=== PATIENT | female | born 1980 | race Hispanic/Latino ===

== ENCOUNTER 2020-04-01 13:26 | Emergency (ER) | payer SELFPAY ==
[~2020-04-01] VITALS: Ht 165.1 cm; Wt 79.4 kg
--- OUTSIDE RECORDS SUMMARY | 2020-04-01 13:28 | XMS REPORT | Continuity of Care Document ---
Author Author [facility] t Organization [facility] Address [address] [place] [address] Phone Unavailable Care Team Providers Care Radio Time Sales Supervisor Name Role Phone Meeta Richter MD PCP KEVIN POLK Attphys Unavailable KEVIN POLK Admphys Unavailable Problems Condition Name Condition Details Condition Category Status Onset Date Resolution Date Last Treatment Date Treating Clinician Comments Source Dysmenorrhea Dysmenorrhea Disease Active 2017-08-27 00:00:00 [facility] Foreign body in uterus, any part Foreign body in uterus, any par t Disease Active 2017-08-27 00:00:00 [facility] Menorrhagia Menorrhagia Disease Active 2017-08-27 00:00:00 [facility] Pelvic pain in female Pelvic pain in female Disease Active 201 05-04-03 00:00:00 [facility] Allergies, Adverse Reactions, Alerts This patient has no known allergies or adverse reactions. Family History Family Member Diagnosis Comments Start Date Stop Date Source Maternal grandfather Diabetes [facility] Maternal grandfather Heart disease [facility] Maternal grandfather High blood pressure [facility] Maternal grandmother Heart disease [facility] Maternal grandmother High blood pressure [facility] Natural mother Heart disease [facility] Natural mother High blood pressure [facility] Social History Social Habit Start Date Stop Date Quantity Comments Source Sex Assigned At [facility] Alcohol Comment 2017-07-19 00:00:00 2017-07-19 00:00:00 per week [facility] Smoking Status Start Date Stop Date Source Never smoker [facility] Medications This patient has no known medications. Procedures This patient has no known procedures. Plan of Care Planned Activity Planned Date Details Comments Source Future Scheduled Test 2019-06-25 00:00:00 INFLUENZA VACCINE (#1) [code = INFLUENZA VACCINE (#1)] [facility] r Future Scheduled Test 2000 00:00:00 Screening for jeanmarie gnant neoplasm of cervix (procedure) [code = 799871336] [facility] Results Test Description Test Time Test Comments Results Result Comments Source FUNGUS CULTURE + SMEAR 2017-09-15 14:17:00 Test Item CULTURE (BEAKER) (test code = 1095) 5-Flurocytosine (test code = 237) Suscep tible 0-4 , Intermediate <0 or >4 , Resistant >16 S Amphotericin B (test code = 136) Suscept ible >0-0 , No Interpretations Established <=0 or >0 Caspofungin acetate (test code = 141) Susceptible 0-0. 25 , Non S Fluconazole (test code = 143) Susceptibl e 0-2 , Dose Dependent Susceptible <0 or >2 , Resi S Itraconazole (test code = 146) Susceptib le 0-0.125 , Dose Dependent Susceptible <0 or >.125 S Micafungin (test code = 148) Susceptible 0-0.25 , Non S Posaconazole (test code = 152) Susceptib le >0-0 , No Interpretations Established <=0 or >0 Voriconazole (test code = 153) Susceptib le 0-0.12 , Dose Dependent Susceptible <0 or >.12 , S CULTURE (BEAKER) (test code = 1095) A <1+ Jocelyne albicans FUNGUS SMEAR (BEAKER) (test code = 1406) No fungi seen MISCELLANEOUS LAB [id number] 13:16:00* Test Item Value Reference Range Interpretation Comments SCAN RESULT (test code = 2913496) MISCELLANEOUS LAB [id number] 07:57:00* Test Item Value Reference Range Interpretation Comments SCAN RESULT (test code = 7334098) See scanned result ANAEROBIC [id number] 14:56:00* Test Item Value Reference Range Interpretation Comments CULTURE (BEAKER) (test code = 1095) A <1+ Prevotella loescheii SURGICALLY OBTAINED CULTURE + GRAM [id number] 12:31:00* Test Item Value Reference Range Interpretation Comments CULTURE (BEAKER) (test code = 1095) A 1+ Gardnerella vaginalis GRAM STAIN RESULT (BEAKER) (test code = 1123) No WBCs GRAM STAIN RESULT (BEAKER) (test code = 156152) No organisms seen TISSUE [id number] 10:52:00Surgical Pathology Report Case: [id number] Authorizing Provider: Yue Polk MD Collected: 08/27/2017 0844 Ordering Location: [facility] PERI[facility] Received: 08/27/2017 1237 SERVICES Pathologist: Cristina Rueda MD Specimens: A) - Foreign Body, FOREIGN BODY -UTERUS, HYSTEROSCOPICALLY REMOVED-IDENTIFICATION PURPOSE B) - Endometrium, ENDOMETRIAL BIOPSY C) - Fallopian Tube, Right, RIGHT TUBE WITH FOREIGN BODY AND CYST D) - Fallopian Tube, Left, LEFT TUBE WITH FOREIGN BODY A. UTERUS, FOREIGN BODY, HYSTEROSCOPICALLY REMOVED: - METAL WIRE (GROSS IDENTIFICATION ONLY)B. ENDOMETRIUM, BIOPSY: - WEAKLY PROLIFERATIVE ENDOMETRIUM WITH TUBAL METAPLASIAC. FALLOPIAN TUBE, RIGHT, SALPINGECTOMY: - PARATUBAL CYST - METAL WIRE (GROSS IDENTIFICATION)C. FALLOPIAN TUBE, LEFT, SALPINGECTOMY: - NO SIGNIFICANT PATHOLOGIC ALTERATION - METAL WIRE (GROSS IDENTIFICATION) MG/[id number], 52399, 40686 [id number], pelvic pain, menorrhagia, foreign body uterusA. Foreign body uterus. B. Endometrial biopsy. C. Right tube with foreign body and cyst. D. Left tube with foreign body Specim en A: The specimen is received in fixative and designated as "foreign body", con sists of a metal wire 25.5 cm in length and 0.1 cm in diameter. No histologic se ctions are submitted, as it's for gross identification only.Specimen B: The spec imen is received in fixative and designated as "endometrium", consists of two pi nk-roberts tissue fragments ranging in size from 0.5 to 0.7 cm in greatest dimension . Both tissue fragments are submitted into B1.Specimen C: The specimen is receiv ed in fixative and designated as "fallopian tube right", consists of a fallopian tube (11.0 cm in length and diameter ranging in size from 0.8 to 3.5 cm in grea test dimension). The distal end of the fallopian tube is dilated and cystic. The proximal aspect of the fallopian tube has a coiled wire protruding through the end (5.0 cm in length and 0.2 cm in diameter). Sectioning through the more dilat ed aspect of the fallopian tube reveals a hemorrhagic lumen.Section code: C1, re presentative cross sections of proximal aspect of fallopian tube; C2-C3, cystica lly dilated aspect of fallopian tube.Specimen D: The specimen is received in fix ative and designated as "fallopian tube left", consists of a pink-roberts fallopian tube with fimbriated end (5 cm in length and 0.9 cm in diameter). The proximal a spect of the fallopian tube has a coiled metal wire (3 cm in length and 0.2 cm i n diameter). Additionally paratubal adipose tissue (1.0 x 1.0 x 1.0 cm) is ident ified.Section code: D1, tour sales representative sections of fallopian tube lumen with adj acent fat; D2, fimbriated end entirely submitted. MG/ew A: Not applicable B-D: P erformed [facility], Department of Pathology, [address] [place] [address], [facility], Department of Pathology, [address] [place] [id number], Tel [facility], Department of Pathology, [address] [place] [address], WPF, SERUM, QUALITATIVE 2017-08-20 13:28:00* Test Item Value Reference Range Interpretation Comments TEST SERUM (BEAKER) (test code = 584) Negative CBC W/PLT COUNT & AUTO [id number] 12:55:00* Test Item Value Reference Range Interpretation Comments WHITE BLOOD CELL COUNT (BEAKER) (test code = 775) 8.4 K/ L 4.0- 10.0 RED BLOOD CELL COUNT (BEAKER) (test code = 761) 4.28 M/ L 4.00-5 .00 HEMOGLOBIN (BEAKER) (test code = 410) 11.7 GM/DL 12.0-15.0 L HEMATOCRIT (BEAKER) (test code = 411) 35.8 % 36.0-45.0 L MEAN CORPUSCULAR VOLUME (BEAKER) (test code = 753) 83.6 fL 82. 0-99.0 MEAN CORPUSCULAR HEMOGLOBIN (BEAKER) (test code = 751) 27.4 pg 27.0-33.0 MEAN CORPUSCULAR HEMOGLOBIN CONC (BEAKER) (test code = 752) 32.7 GM/DL 32.0-36.0 RED CELL DISTRIBUTION WIDTH (BEAKER) (test code = 412) 15.4 % 10.3-14.2 H PLATELET COUNT (BEAKER) (test code = 756) 384 K/CU MM 150-430 MEAN PLATELET VOLUME (BEAKER) (test code = 754) 7.7 fL 6.5-10 .5 NUCLEATED RED BLOOD CELLS (BEAKER) (test code = 413) 0 /100 WBC 0 -0 NEUTROPHILS RELATIVE PERCENT (BEAKER) (test code = 429) 55 % LYMPHOCYTES RELATIVE PERCENT (BEAKER) (test code = 430) 39 % MONOCYTES RELATIVE PERCENT (BEAKER) (test code = 431) 5 % EOSINOPHILS RELATIVE PERCENT (BEAKER) (test code = 432) 1 % BASOPHILS RELATIVE PERCENT (BEAKER) (test code = 437) 0 % NEUTROPHILS ABSOLUTE COUNT (BEAKER) (test code = 670) 4.60 K/ L 1.80-8.00 LYMPHOCYTES ABSOLUTE COUNT (BEAKER) (test code = 414) 3.30 K/ L 1.48-4.50 MONOCYTES ABSOLUTE COUNT (BEAKER) (test code = 415) 0.40 K/ L 0. 00-1.30 EOSINOPHILS ABSOLUTE COUNT (BEAKER) (test code = 416) 0.10 K/ L 0.00-0.50 BASOPHILS ABSOLUTE COUNT (BEAKER) (test code = 417) 0.00 K/ L 0. 00-0.20
--- OUTSIDE RECORDS SUMMARY | 2020-04-01 13:28 | XMS REPORT | Clinical Summary ---
Author Author [facility] Organization [facility] Address Unknown Phone Unavailable Care Team Providers Care Digital Content Specialist Name Role Phone Jessica Richter MD PCP Allergies No Known Allergies Medications No known medications Active Problems Problem Noted Date Dysmenorrhea 08/27/2017 Foreign body in uterus, any part 08/27/2017 Menorrhagia 08/27/2017 Pelvic pain in female 08/27/2017 Family History Medical History Relation Name Comments Diabetes Maternal Grandfather Heart disease Maternal Grandfather High blood pressure Maternal Grandfather Heart disease Maternal Grandmother High blood pressure Maternal Grandmother Heart disease Mother High blood pressure Mother Relation Name Status Comments Maternal Grandfather Maternal Grandmother Mother Social History Date Tobacco Use Types Packs/Day Years Used Never Smoker Smokeless Tobacco: Never Used Alcohol Use Drinks/Week oz/Week Comments Yes 3 Glasses of 3.6 per week wine 3 Cans of beer Sex Assigned at Date Recorded Not on file Industry Job Start Date Occupation Not on file Not on file Not on file Travel End Travel History Travel Start No recent travel history available. Last Filed Vital Signs Not on file Plan of Treatment Health Maintenance Due Date Last Done Comments CERVICAL CANCER SCREENING 2000 PAP ONLY (Age 21-65) INFLUENZA VACCINE (#1) 2019 Results Not on fileafter 04/01/2019 Advance Directives For more information, please contact: [facility] [address] [place], [place] [id number] Date Inactivated Comments Code Status Date Activated 08/27/2017 2:31 PM Full Code 08/27/2017 5:55 AM This code status was determined by: Patient
[2020-04-01] MEDS ORDERED: KETOROLAC TROMETHAMINE 30 MG/ML VIAL IV STA (13:32)
[2020-04-01] MEDS ORDERED: CEFTRIAXONE SOD 1 GM/NS 50 ML 50 ML IV STA (13:32)
[2020-04-01] MEDS ORDERED: SODIUM CHLORIDE 0.9% 1000ML 1,000 ML IV STA ×2 (13:32→16:14)
[2020-04-01] MEDS ORDERED: ONDANSETRON HCL INJ 2MG/ML 2ML 2 MG/ML VIAL IV STA (13:32)
[2020-04-01] MEDS ORDERED: MORPHINE SULFATE INJ 4 MG/ML INJ 1ML IV STA (13:32)
--- NOTE | 2020-04-01 13:37 | Emergency Department Note ---
History of Present Illnes History of Present Illness History of Present Illness This is a 39 year old female . c/o r flank pain on set 1030 am c/o n/v Arrival Mode: Car Onset (how long ago): day(s) (c/o r flank pain on set 1030 am c/o n/v ) Radiation: flank Severity: severe Onset quality: sudden Duration (how long): day(s) (c/o r flank pain on set 1030 am c/o n/v ) Timing of current episode: constant Progression: waxing and waning Context: recent illness, recent surgery, recent immobilization, recent travel, trauma/injury, new medications, hx of DVT/PE, non-compliance w/ medications, other Relieving factors: none Exacerbating factors: none Treatments prior to arrival: none Past Medical/Family History Physician Review I have reviewed the patient's past medical and family history. Any updates have been documented here. Past Medical History Recent Fever: No Clinical Suspicion of Infectio: No New/Unexplained Change in Ment: No Past Medical History: Hypertension Past Surgical History: Hysterectomy Social History Smoking Cessation: Never Smoker Alcohol Use: None Any Illegal Drug Use: No TB Exposure/Symptoms: No Physically hurt or threatened: No Family History Family history of heart diseas: No Other Any Pre-Existing Lines (PICC,: No Review of Systems Review of Systems Constitutional: no symptoms EENTM: no symptoms Cardiovascular: no symptoms Respiratory: no symptoms Gastrointestinal: nausea, vomiting, other (r flank pain ) Genitourinary: no symptoms Musculoskeletal: no symptoms Neurological: no symptoms Psychological: no symptoms Endocrine: no symptoms Hematological/Lymphatic: no symptoms Review of other systems All other systems reviewed and negative. Physical Exam Related Data Allergies: Coded Allergies: No Known Allergies (Unverified , 04/01/20) Vital signs reviewed: Yes Physical Exam CONSTITUTIONAL Constitutional: well-developed, well-nourished HENT HENT: normocephalic, atraumatic, oropharynx clear/moist, nose normal HENT L/R: left ext ear normal, right ext ear normal EYES Eyes: PERRL, conjunctivae normal NECK Neck: ROM normal PULMONARY Pulmonary: effort normal, breath sounds normal CARDIOVASCULAR Cardiovascular: regular rhythm, heart sounds normal, capillary refill normal, normal rate GASTROINTESTINAL Abdominal: soft, nontender, bowel sounds normal, other (c/o r flank pain on set 1030 am c/o n/v ) GENITOURINARY Genitourinary: exam deferred SKIN Skin: warm, dry MUSCULOSKELETAL Musculoskeletal: ROM normal NEUROLOGICAL Neurological: alert, oriented x 3, no gross motor or sensory deficits PSYCHOLOGICAL Psychological: mood/affect normal, judgement normal Results Laboratory Laboratory Laboratory Tests Test 04/01/20 13:52 04/01/20 13:30 Urine Color Yellow (YELLOW) Urine Clarity Turbid (CLEAR) Urine pH 6 (5 - 7) Urine Specific [place] 1.030 (1.010-1.025) Urine Protein 1+ (NEGATIVE) Urine Glucose (UA) Negative (NEGATIVE) Urine Ketones Negative (NEGATIVE) Urine Blood Large (NEGATIVE) Urine Nitrite Negative (NEGATIVE) Urine Bilirubin Negative (NEGATIVE) Urine Urobilinogen 0.2 mg/dL (0.2 - 1) Urine Leukocyte Esterase Negative (NEGATIVE) Urine RBC >50 /HPF (0-5) Urine WBC 6-10 /HPF (0-5) Urine Epithelial Cells Rare /LPF (NONE) Urine Amorphous Sediment Many (FEW) Urine Bacteria Few /HPF (NONE) White Blood Count 10.39 x10e3/uL (4.8-10.8) Red Blood Count 4.42 x10e6/uL (3.6-5.1) Hemoglobin 13.1 g/dL (12.0-16.0) Hematocrit 39.1 % (34.2-44.1) Mean Corpuscular Volume 88.5 fL (81-99) Mean Corpuscular Hemoglobin 29.6 pg (28-32) Mean Corpuscular Hemoglobin Concent 33.5 g/dL (31-35) Red Cell Distribution Width 12.5 % (11.7-14.4) Platelet Count 397 x10e3/uL (140-360) Neutrophils (%) (Auto) 64.4 % (38.7-80.0) Lymphocytes (%) (Auto) 30.3 % (18.0-39.1) Monocytes (%) (Auto) 3.9 % (4.4-11.3) Eosinophils (%) (Auto) 0.4 % (0.0-6.0) Basophils (%) (Auto) 0.5 % (0.0-1.0) Neutrophils # (Auto) 6.7 (2.1-6.9) Lymphocytes # (Auto) 3.2 (1.0-3.2) Monocytes # (Auto) 0.4 (0.2-0.8) Eosinophils # (Auto) 0.0 (0.0-0.4) Basophils # (Auto) 0.1 (0.0-0.1) Absolute Immature Granulocyte (auto 0.05 x10e3/uL (0-0.1) Sodium Level 138 mmol/L (136-145) Potassium Level 3.8 mmol/L (3.5-5.1) Chloride Level 106 mmol/L (98-107) Carbon Dioxide Level 18 mmol/L (22-29) Anion Gap 17.8 mmol/L (8-16) Blood Urea Nitrogen 14 mg/dL (7-26) Creatinine 0.78 mg/dL (0.57-1.11) Estimat Glomerular Filtration Rate > 60 ML/MIN (60-) BUN/Creatinine Ratio 18 (6-25) Glucose Level 115 mg/dL (74-118) Calcium Level 9.5 mg/dL (8.4-10.2) Total Bilirubin 0.3 mg/dL (0.2-1.2) Aspartate Amino Transf (AST/SGOT) 16 IU/L (5-34) Alanine Aminotransferase (ALT/SGPT) 20 IU/L (0-55) Alkaline Phosphatase 84 IU/L (40-150) Total Protein 8.5 g/dL (6.5-8.1) Albumin 4.0 g/dL (3.5-5.0) Globulin 4.5 g/dL (2.3-3.5) Albumin/Globulin Ratio 0.9 (0.8-2.0) Amylase Level 51 U/L (25-125) Lipase 16 U/L (8-78) Laboratory Tests Test 04/01/20 13:52 04/01/20 13:30 Urine Color Yellow (YELLOW) Urine Clarity Turbid (CLEAR) Urine pH 6 (5 - 7) Urine Specific [place] 1.030 (1.010-1.025) Urine Protein 1+ (NEGATIVE) Urine Glucose (UA) Negative (NEGATIVE) Urine Ketones Negative (NEGATIVE) Urine Blood Large (NEGATIVE) Urine Nitrite Negative (NEGATIVE) Urine Bilirubin Negative (NEGATIVE) Urine Urobilinogen 0.2 mg/dL (0.2 - 1) Urine Leukocyte Esterase Negative (NEGATIVE) Urine RBC >50 /HPF (0-5) Urine WBC 6-10 /HPF (0-5) Urine Epithelial Cells Rare /LPF (NONE) Urine Amorphous Sediment Many (FEW) Urine Bacteria Few /HPF (NONE) White Blood Count 10.39 x10e3/uL (4.8-10.8) Red Blood Count 4.42 x10e6/uL (3.6-5.1) Hemoglobin 13.1 g/dL (12.0-16.0) Hematocrit 39.1 % (34.2-44.1) Mean Corpuscular Volume 88.5 fL (81-99) Mean Corpuscular Hemoglobin 29.6 pg (28-32) Mean Corpuscular Hemoglobin Concent 33.5 g/dL (31-35) Red Cell Distribution Width 12.5 % (11.7-14.4) Platelet Count 397 x10e3/uL (140-360) Neutrophils (%) (Auto) 64.4 % (38.7-80.0) Lymphocytes (%) (Auto) 30.3 % (18.0-39.1) Monocytes (%) (Auto) 3.9 % (4.4-11.3) Eosinophils (%) (Auto) 0.4 % (0.0-6.0) Basophils (%) (Auto) 0.5 % (0.0-1.0) Neutrophils # (Auto) 6.7 (2.1-6.9) Lymphocytes # (Auto) 3.2 (1.0-3.2) Monocytes # (Auto) 0.4 (0.2-0.8) Eosinophils # (Auto) 0.0 (0.0-0.4) Basophils # (Auto) 0.1 (0.0-0.1) Absolute Immature Granulocyte (auto 0.05 x10e3/uL (0-0.1) Sodium Level 138 mmol/L (136-145) Potassium Level 3.8 mmol/L (3.5-5.1) Chloride Level 106 mmol/L (98-107) Carbon Dioxide Level 18 mmol/L (22-29) Anion Gap 17.8 mmol/L (8-16) Blood Urea Nitrogen 14 mg/dL (7-26) Creatinine 0.78 mg/dL (0.57-1.11) Estimat Glomerular Filtration Rate > 60 ML/MIN (60-) BUN/Creatinine Ratio 18 (6-25) Glucose Level 115 mg/dL (74-118) Calcium Level 9.5 mg/dL (8.4-10.2) Total Bilirubin 0.3 mg/dL (0.2-1.2) Aspartate Amino Transf (AST/SGOT) 16 IU/L (5-34) Alanine Aminotransferase (ALT/SGPT) 20 IU/L (0-55) Alkaline Phosphatase 84 IU/L (40-150) Total Protein 8.5 g/dL (6.5-8.1) Albumin 4.0 g/dL (3.5-5.0) Globulin 4.5 g/dL (2.3-3.5) Albumin/Globulin Ratio 0.9 (0.8-2.0) Amylase Level 51 U/L (25-125) Lipase 16 U/L (8-78) Laboratory Tests Test 04/01/20 13:52 04/01/20 13:30 Urine Color Yellow (YELLOW) Urine Clarity Turbid (CLEAR) Urine pH 6 (5 - 7) Urine Specific [place] 1.030 (1.010-1.025) Urine Protein 1+ (NEGATIVE) Urine Glucose (UA) Negative (NEGATIVE) Urine Ketones Negative (NEGATIVE) Urine Blood Large (NEGATIVE) Urine Nitrite Negative (NEGATIVE) Urine Bilirubin Negative (NEGATIVE) Urine Urobilinogen 0.2 mg/dL (0.2 - 1) Urine Leukocyte Esterase Negative (NEGATIVE) Urine RBC >50 /HPF (0-5) Urine WBC 6-10 /HPF (0-5) Urine Epithelial Cells Rare /LPF (NONE) Urine Amorphous Sediment Many (FEW) Urine Bacteria Few /HPF (NONE) White Blood Count 10.39 x10e3/uL (4.8-10.8) Red Blood Count 4.42 x10e6/uL (3.6-5.1) Hemoglobin 13.1 g/dL (12.0-16.0) Hematocrit 39.1 % (34.2-44.1) Mean Corpuscular Volume 88.5 fL (81-99) Mean Corpuscular Hemoglobin 29.6 pg (28-32) Mean Corpuscular Hemoglobin Concent 33.5 g/dL (31-35) Red Cell Distribution Width 12.5 % (11.7-14.4) Platelet Count 397 x10e3/uL (140-360) Neutrophils (%) (Auto) 64.4 % (38.7-80.0) Lymphocytes (%) (Auto) 30.3 % (18.0-39.1) Monocytes (%) (Auto) 3.9 % (4.4-11.3) Eosinophils (%) (Auto) 0.4 % (0.0-6.0) Basophils (%) (Auto) 0.5 % (0.0-1.0) Neutrophils # (Auto) 6.7 (2.1-6.9) Lymphocytes # (Auto) 3.2 (1.0-3.2) Monocytes # (Auto) 0.4 (0.2-0.8) Eosinophils # (Auto) 0.0 (0.0-0.4) Basophils # (Auto) 0.1 (0.0-0.1) Absolute Immature Granulocyte (auto 0.05 x10e3/uL (0-0.1) Sodium Level 138 mmol/L (136-145) Potassium Level 3.8 mmol/L (3.5-5.1) Chloride Level 106 mmol/L (98-107) Carbon Dioxide Level 18 mmol/L (22-29) Anion Gap 17.8 mmol/L (8-16) Blood Urea Nitrogen 14 mg/dL (7-26) Creatinine 0.78 mg/dL (0.57-1.11) Estimat Glomerular Filtration Rate > 60 ML/MIN (60-) BUN/Creatinine Ratio 18 (6-25) Glucose Level 115 mg/dL (74-118) Calcium Level 9.5 mg/dL (8.4-10.2) Total Bilirubin 0.3 mg/dL (0.2-1.2) Aspartate Amino Transf (AST/SGOT) 16 IU/L (5-34) Alanine Aminotransferase (ALT/SGPT) 20 IU/L (0-55) Alkaline Phosphatase 84 IU/L (40-150) Total Protein 8.5 g/dL (6.5-8.1) Albumin 4.0 g/dL (3.5-5.0) Globulin 4.5 g/dL (2.3-3.5) Albumin/Globulin Ratio 0.9 (0.8-2.0) Amylase Level 51 U/L (25-125) Lipase 16 U/L (8-78) Lab results reviewed: Yes Imaging Impressions IMPRESSION: 1. 4 mm stone identified within the distal right ureter resulting in mild hydroureteronephrosis. 2. 3 mm nonobstructing stone identified within the inferior pole the left kidney. 3. Cholelithiasis without CT evidence for acute cholecystitis. Signed by: Dr. Juan Antonio Stacy MD on 04/01/2020 4:15 PM Critical Care Time Subsequent provider I assumed direction of critical care for this patient from another provider of my specialty. Assessment & Plan Reassessment Reassessment time: 13:36 Reassessment 39y f c/o r flank pain on set 1030 am c/o n/v - ordered lab ct - medicated w/ ns zofran toradol rocephine morphine Assessment & Plan Final Impression: (1) Kidney stone on right side Assessment & Plan pt reports pain much less at this time discussed lab ct results plan of care and f/u instructions plan 1. tylenol and motrin as needed 2. return to ed as needed 3. increase oral fluids 4. follow up with your doctor / urologist in 1-2 days without fail 5. rx zofran t#3 flomax omnicef Depart Disposition: HOME, SELF-CARE ZOFIA THOMPSON Apr 01, 2020 13:37
[2020-04-01] MEDS ORDERED: SODIUM CHLORIDE 0.9% 1000ML 1,000 ML ONE (13:40)
[2020-04-01] MEDS ORDERED: KETOROLAC TROMETHAMINE 60 MG/2 ML VIAL ONE ×2 (13:40→14:08)
[2020-04-01] MEDS ORDERED: DEXAMETHASONE SOD PHOS 10 MG/1 ML VIAL ONE (14:08)
[2020-04-01 14:22] LABS: BASOPHILS # (AUTO) 0.1 (0.0-0.1); BASOPHILS % 0.5 % (0.0-1.0); EOSINOPHILS % 0.4 % (0.0-6.0); HEMATOCRIT 39.1 % (34.2-44.1); HEMOGLOBIN 13.1 g/dL (12.0-16.0); LYMPHOCYTES # (AUTO) 3.2 (1.0-3.2); LYMPHOCYTES % 30.3 % (18.0-39.1); MEAN CORPUSCULAR HEMOGLOBIN 29.6 pg (28-32); MEAN CORPUSCULAR HGB CONC 33.5 g/dL (31-35); MEAN CORPUSCULAR VOLUME 88.5 fL (81-99); MONOCYTES # (AUTO) 0.4 (0.2-0.8); MONOCYTES % 3.9 % (4.4-11.3); NEUTROPHILS # (AUTO) 6.7 (2.1-6.9); NEUTROPHILS % 64.4 % (38.7-80.0); PLATELET COUNT 397 x10e3/uL (140-360); RED BLOOD COUNT 4.42 x10e6/uL (3.6-5.1); RED CELL DISTRIBUTION WIDTH 12.5 % (11.7-14.4)
[2020-04-01 14:25] LABS: BILIRUBIN,URINE NEGATIVE (NEGATIVE); CLARITY,URINE TURBID (CLEAR); COLOR,URINE YELLOW (YELLOW); KETONES,URINE NEGATIVE (NEGATIVE); LEUKOCYTE ESTERASE ,URINE NEGATIVE (NEGATIVE); NITRITE,URINE NEGATIVE (NEGATIVE); PROTEIN,URINE DIPSTICK 1+ (NEGATIVE); URINE UROBILINOGEN 0.2 mg/dL (0.2 - 1)
[2020-04-01 14:38] LABS: AMORPHOUS SEDIMENT,URINE MANY (FEW); BACTERIA,URINE FEW /HPF; EPITHELIAL CELLS,URINE RARE /LPF; RBC,URINE >50 /HPF (0-5)
[2020-04-01 14:49] LABS: ALANINE AMINOTRANSFERASE 20 IU/L (0-55); ALBUMIN/GLOBULIN RATIO 0.9 (0.8-2.0); ALKALINE PHOSPHATASE 84 IU/L (40-150); AMYLASE 51 U/L (25-125); ANION GAP 17.8 mmol/L (8-16); BLOOD UREA NITROGEN 14 mg/dL (7-26); BUN/CREATININE RATIO 18 (6-25); CALCIUM 9.5 mg/dL (8.4-10.2); CARBON DIOXIDE 18 mmol/L (22-29); CHLORIDE 106 mmol/L (98-107); CREATININE, SERUM 0.78 mg/dL (0.57-1.11); EST GLOMERULAR FILTRATION RATE > 60 ML/MIN (60-); GLUCOSE 115 mg/dL (74-118); LIPASE 16 U/L (8-78); POTASSIUM 3.8 mmol/L (3.5-5.1); SODIUM 138 mmol/L (136-145)
--- NOTE | 2020-04-01 16:19 | Diagnostic Imaging Report ---
CT of the abdomen and pelvis, without contrast. History: Renal stone, abdominal pain. Comparison: None available. Technique: Multidetector CT scanning of the abdomen and pelvis was performed from the level of the lung bases to the inferior pubic rami without the contrast material. Coronal and sagittal multiplanar reformations were obtained. RADIATION DOSE: Total DLP: 697.15 mGy*cm Dose modulation, iterative reconstruction, and/or weight based adjustment of the mA/kV was utilized to reduce the radiation dose to as low as reasonably achievable. FINDINGS: The visualized lungs are clear. The imaged portion of the heart demonstrates no significant abnormalities. The liver is normal in size on this noncontrast enhanced examination. Multiple calcified gallstones are noted within the gallbladder. There is no evidence for gallbladder distention, wall thickening, or pericholecystic fluid. There is no biliary ductal dilatation. The stomach, spleen, pancreas, and bilateral adrenal glands demonstrate unremarkable noncontrast appearance. The kidneys are normal in size and location. There is a 4 mm stone identified within the distal right ureter resulting in mild hydroureteronephrosis. A nonobstructing 3-4 mm stone is identified within the inferior pole the left kidney. The left ureter is normal course and caliber. The partially distended urinary bladder demonstrates no significant abnormalities. The uterus and adnexa are grossly unremarkable. The abdominal aorta and IVC are normal in caliber. Please note that evaluation the bowel is limited without the use of enteric contrast material. The visualized loops small large bowel demonstrate no evidence of obstruction or inflammation. The appendix is visualized and appears unremarkable. There is no ascites or intraperitoneal free air. No abnormally enlarged lymph nodes are identified within the abdomen or pelvis. The osseous structures demonstrate no evidence for acute fracture or destructive process. The extraperitoneal soft tissues are unremarkable. IMPRESSION: 1. 4 mm stone identified within the distal right ureter resulting in mild hydroureteronephrosis. 2. 3 mm nonobstructing stone identified within the inferior pole the left kidney. 3. Cholelithiasis without CT evidence for acute cholecystitis. Signed by: Dr. Juan Antonio Stacy MD on 04/01/2020 4:15 PM
[2020-04-01] MEDS ORDERED: MORPHINE SULFATE INJ 4 MG/ML INJ 1ML IV PRN (16:30)
[2020-04-01 16:46] VITALS: BP 141/89
== END 2020-04-01 16:56 | disposition home or self-care (01) ==
LOC: ER 13:26
DX: M54.5 Low back pain (principal); R11.2 Nausea with vomiting, unspecified; R10.9 Unspecified abdominal pain; N20.0 Calculus of kidney; K80.20 Calculus of gallbladder without cholecystitis without obstruction; I10 Essential (primary) hypertension
CPT/HCPCS: 36415; 74176; 80053; 81001; 82150; 83690; 85025; 87086; 99284; J0696; J1100; J1885; J2270; J2405; J7030